=== PATIENT | female | born 1980 | race Two or more races ===

== ENCOUNTER 2017-06-10 11:12 | Observation (INO) | payer SELFPAY ==
[2017-01-06 10:27] VITALS: BP 120/68
[~2017-06-10 11:12] MED LIST: ACET-704 PO; HYDR-971 PO; NITR100C PO; ONDA4TAB10 SL; SULF1TAB24 PO; TAMS0.4C97 PO
[2017-06-10] MEDS ORDERED: IV RINGERS,LACTATED 1000ML 1,000 ML IV SCH (15:21)
== END 2017-06-10 15:26 | disposition home or self-care (01) ==
LOC: 3 SO LND 11:12
PROVIDERS: ADMIT Obstetrics & Gynecology; ATTEND Obstetrics & Gynecology
DX: O26.833 Pregnancy related renal disease, third trimester (principal); N20.0 Calculus of kidney; Z3A.36 36 weeks gestation of pregnancy
CPT/HCPCS: G0378; G0379

== ENCOUNTER 2018-07-13 21:02 | Emergency (ER) | payer SELFPAY ==
[~2018-07-13] VITALS: Ht 165.1 cm; Wt 73.5 kg
[2018-07-13 22:08] LABS: BILIRUBIN,URINE NEGATIVE (NEG); CLARITY,URINE CLEAR; COLOR,URINE YELLOW; NITRITE,URINE POSITIVE (NEG); PH,URINE 5.5; PROTEIN,URINE NEGATIVE (NEG-TRACE); UROBILINOGEN,URINE 0.2 mg/dL (0.2 mg/dL)
[2018-07-13 22:19] LABS: BACTERIA,URINE MODERATE /HPF (0-FEW); SQUAMOUS EPITHELIAL CELL,UR FEW /LPF
[2018-07-13 22:30] LABS: BASO # 0.1 x10^3/uL (0.0-0.2); BASO % 1 % (0-3); EOS # 0.2 x10^3/uL (0.0-0.7); EOS % 2 % (0-3); HEMATOCRIT 30.9 % (36.0-47.0); HEMOGLOBIN 10.7 g/dL (12.0-15.5); LYMPH # 1.8 x10^3/uL (1.0-4.8); LYMPH % 18 % (24-48); MEAN CORPUSCULAR HEMOGLOBIN 31 pg (25-35); MEAN CORPUSCULAR HGB CONC 35 g/dL (31-37); MEAN CORPUSCULAR VOLUME 89 fL (79-100); MONO # 0.5 x10^3/uL (0.0-1.1); MONO % 5 % (0-9); NEUT # 7.3 x10^3uL (1.8-7.7); NEUT % 75 % (31-73); PLATELET COUNT 232 x10^3/uL (140-400); RED BLOOD COUNT 3.48 x10^6/uL (3.50-5.40); RED CELL DISTRIBUTION WIDTH 14.5 % (11.5-14.5); WHITE BLOOD COUNT 9.8 x10^3/uL (4.0-11.0)
[2018-07-13 22:37] LABS: CALCIUM 9.6 mg/dL (8.5-10.1); CREATININE 0.7 mg/dL (0.6-1.0); GFR 94.7; POTASSIUM 3.4 mmol/L (3.5-5.1)
[2018-07-13 22:43] LABS: ALBUMIN 2.7 g/dL (3.4-5.0); ALBUMIN/GLOBULIN RATIO 0.6 (1.0-1.7); TOTAL BILIRUBIN 0.1 mg/dL (0.2-1.0); TOTAL PROTEIN 7.3 g/dL (6.4-8.2)
[2018-07-13 22:55] VITALS: BP 120/75
[2018-07-13] MEDS ORDERED: IV NORMAL SALINE 1000ML BAG 1,000 ML IV ONE (23:00)
[2018-07-13] MEDS ORDERED: NITR100C62 PO (23:22)
--- NOTE | 2018-07-13 23:23 | PHYS DOC ---
Past Medical History Past Medical History: Kidney Stone, P.U.D., UTI Past Surgical History: Other Additional Past Surgical Histo: ulcer repair, Urinary stent (removed) Alcohol Use: None Drug Use: None Adult General Chief Complaint Chief Complaint: ABDOMINAL PAIN IN HPI HPI Patient is a 38 year old [f__sex] who presents with [] Review of Systems Review of Systems Constitutional: Denies fever or chills [] Eyes: Denies change in visual acuity, redness, or eye pain [] HENT: Denies nasal congestion or sore throat [] Respiratory: Denies cough or shortness of breath [] Cardiovascular: No additional information not addressed in HPI [] GI: Denies abdominal pain, nausea, vomiting, bloody stools or diarrhea [] : Denies dysuria or hematuria [] Musculoskeletal: Denies back pain or joint pain [] Integument: Denies rash or skin lesions [] Neurologic: Denies headache, focal weakness or sensory changes [] Endocrine: Denies polyuria or polydipsia [] All other systems were reviewed and found to be within normal limits, except as documented in this note. Current Medications Current Medications Current Medications Medications (Trade) Dose Ordered Sig/Micky Start Time Stop Time Status Last Admin Dose Admin Ceftriaxone Sodium 50 ml @ 100 mls/hr 1X ONCE 07/13/18 23:00 07/13/18 23:29 Sodium Chloride 1,000 ml @ 1,000 mls/hr 1X ONCE 07/13/18 23:00 07/13/18 23:59 Allergies Allergies Allergies Coded Allergies Type Severity Reaction Last Updated Verified No Known Drug Allergies 08/29/15 No Physical Exam Physical Exam Constitutional: Well developed, well nourished, no acute distress, non-toxic appearance. [] HENT: Normocephalic, atraumatic, bilateral external ears normal, oropharynx moist, no oral exudates, nose normal. [] Eyes: PERRLA, EOMI, conjunctiva normal, no discharge. [] Neck: Normal range of motion, no tenderness, supple, no stridor. [] Cardiovascular:Heart rate regular rhythm, no murmur [] Lungs & Thorax: Bilateral breath sounds clear to auscultation [] Abdomen: Bowel sounds normal, soft, no tenderness, no masses, no pulsatile masses. [] Skin: Warm, dry, no erythema, no rash. [] Back: No tenderness, no CVA tenderness. [] Extremities: No tenderness, no cyanosis, no clubbing, ROM intact, no edema. [] Neurologic: Alert and oriented X 3, normal motor function, normal sensory function, no focal deficits noted. [] Psychologic: Affect normal, judgement normal, mood normal. [] Current Patient Data Vital Signs Vital Signs Date Time Temp Pulse Resp B/P (MAP) Pulse Ox O2 Delivery O2 Flow Rate FiO2 07/13/18 21:41 98.1 74 20 135/75 (95) 97 Room Air 98.1 Lab Values Laboratory Tests Test 07/13/18 21:25 07/13/18 21:29 07/13/18 22:20 Urine Collection Type Unknown Urine Color Yellow Urine Clarity Clear Urine pH 5.5 Urine Specific Davey 1.015 Urine Protein Negative mg/dL (NEG-TRACE) Urine Glucose (UA) Negative mg/dL (NEG) Urine Ketones (Stick) Negative mg/dL (NEG) Urine Blood Large (NEG) Urine Nitrite Positive (NEG) Urine Bilirubin Negative (NEG) Urine Urobilinogen Dipstick 0.2 mg/dL (0.2 mg/dL) Urine Leukocyte Esterase Moderate (NEG) Urine RBC 11-20 /HPF (0-2) Urine WBC 5-10 /HPF (0-4) Urine Squamous Epithelial Cells Few /LPF Urine Bacteria Moderate /HPF (0-FEW) Urine Mucus Slight /LPF POC Urine HCG, Qualitative Hcg positive (Negative) White Blood Count 9.8 x10^3/uL (4.0-11.0) Red Blood Count 3.48 x10^6/uL (3.50-5.40) L Hemoglobin 10.7 g/dL (12.0-15.5) L Hematocrit 30.9 % (36.0-47.0) L Mean Corpuscular Volume 89 fL (79-100) Mean Corpuscular Hemoglobin 31 pg (25-35) Mean Corpuscular Hemoglobin Concent 35 g/dL (31-37) Red Cell Distribution Width 14.5 % (11.5-14.5) Platelet Count 232 x10^3/uL (140-400) Neutrophils (%) (Auto) 75 % (31-73) H Lymphocytes (%) (Auto) 18 % (24-48) L Monocytes (%) (Auto) 5 % (0-9) Eosinophils (%) (Auto) 2 % (0-3) Basophils (%) (Auto) 1 % (0-3) Neutrophils # (Auto) 7.3 x10^3uL (1.8-7.7) Lymphocytes # (Auto) 1.8 x10^3/uL (1.0-4.8) Monocytes # (Auto) 0.5 x10^3/uL (0.0-1.1) Eosinophils # (Auto) 0.2 x10^3/uL (0.0-0.7) Basophils # (Auto) 0.1 x10^3/uL (0.0-0.2) Sodium Level 135 mmol/L (136-145) L Potassium Level 3.4 mmol/L (3.5-5.1) L Chloride Level 104 mmol/L (98-107) Carbon Dioxide Level 22 mmol/L (21-32) Anion Gap 9 (6-14) Blood Urea Nitrogen 9 mg/dL (7-20) Creatinine 0.7 mg/dL (0.6-1.0) Estimated GFR (Cockcroft-Gault) 94.7 BUN/Creatinine Ratio 13 (6-20) Glucose Level 117 mg/dL (70-99) H Calcium Level 9.6 mg/dL (8.5-10.1) Total Bilirubin 0.1 mg/dL (0.2-1.0) L Aspartate Amino Transferase (AST) 14 U/L (15-37) L Alanine Aminotransferase (ALT) 17 U/L (14-59) Alkaline Phosphatase 59 U/L (46-116) Total Protein 7.3 g/dL (6.4-8.2) Albumin 2.7 g/dL (3.4-5.0) L Albumin/Globulin Ratio 0.6 (1.0-1.7) L Laboratory Tests 07/13/18 22:20 Laboratory Tests 07/13/18 22:20 EKG EKG [] Radiology/Procedures Radiology/Procedures [] Course & Med Decision Making Course & Med Decision Making Pertinent Labs and Imaging studies reviewed. (See chart for details) [] Dragon Disclaimer Dragon Disclaimer This electronic medical record was generated, in whole or in part, using a voice recognition dictation system. Departure Departure Impression: Primary Impression: UTI (urinary tract infection) Disposition: HOME, SELF-CARE Condition: STABLE Referrals: NO PCP (PCP) Patient Instructions: - Urinary Tract Infection Additional Instructions: Take the antibiotic as directed. Increase fluids and rest. 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 Follow-up with your primary care provider in one week for urine recheck. If worsening please return to the emergency department. Scripts Nitrofurantoin Monohyd/M-Cryst (MACROBID 100 MG CAPSULE) 100 Mg Capsule 1 CAP PO BID, #14 CAP Prov: MARIA DEL CARMEN GARCIA APRN 07/13/18 MARIA DEL CARMEN GARCIA APRN Jul 13, 2018 23:23
--- NOTE | 2018-07-13 23:44 | RAD ---
OB ultrasound less than 14 weeks HISTORY: Pain and twin Sonographic examination of the was performed by transvaginal technique and multiple static images were obtained. There is a live twin intrauterine . This is dichorionic diamniotic. The heartbeat is 1 47 bpm and 1 53 bpm. Visualization of structures is limited at this early gestational age. The measurements are as follows: Fetus a: BPD 2.4 cm 14 weeks 1 day Head circumference 9.3 cm 14 weeks 1 day Double circumference 9.3 cm 15 weeks 3 days Femur length 1.8 cm 15 weeks 3 days Fetus B: BPD 2.4 cm 14 weeks 1 day Head circumference 19.4 cm 14 weeks 2 days Abdominal circumference 7.7 cm 14 weeks 1 day Femur length 1.4 cm 14 weeks 0 days The LMP of 04/14/2018 corresponds with a 12 week 6 day gestational age and estimated date of confinement of 01/19/2019. Estimated size by ultrasound is 14 weeks 6 days for fetus a and 14 weeks 1 day for fetus B and estimated date confinement is 01/05/2019 for fetus a and 01/10/2019 for fetus B. IMPRESSION: 1. Live twin intrauterine . 2. Size by ultrasound given above. Discrepancy with that by clinical dates is likely secondary to an inaccurate LMP. 3. No abnormality identified. A short-term follow-up ultrasound could be performed if clinically indicated otherwise a structural survey would be performed at 18-21 weeks gestational age. Electronically signed by: Dimitris Sanchez III, MD (07/13/2018 11:40 PM) [facility]
[2018-07-14] MEDS ORDERED: ACETAMINOPHEN 500 MG TABLET PO ONE
== END 2018-07-14 00:10 | disposition home or self-care (01) ==
LOC: ER 21:02
DX: O23.41 Unspecified infection of urinary tract in pregnancy, first trimester (principal); Z3A.13 13 weeks gestation of pregnancy
CPT/HCPCS: 36415; 76801; 80053; 81001; 81025; 85025; 96365; 99285; J0690; J7030